=== PATIENT | female | born 1980 | race American Indian/Alaskan Native ===

== ENCOUNTER 2017-03-07 17:10 | Emergency (ER) | payer BC ==
[2017-03-07] MEDS ORDERED: TORADOL IM ONE (19:30)
[2017-03-07] MEDS ORDERED: ZESTRIL PO ONE (19:30)
--- NOTE | 2017-03-07 19:45 | Emergency Department Report ---
ED General Adult HPI - General Chief complaint: Shoulder Injury Stated complaint: LEFT SHOULDER PAIN Time Seen by Provider: 03/07/17 19:00 Source: patient Mode of arrival: Ambulatory Limitations: No Limitations - History of Present Illness Initial comments: 36-year-old female past medical history hypertension, diabetes presents with complaint of left-sided shoulder/neck pain since this morning. Patient denies any trauma to neck denies any falls denies any head trauma denies any neck or shoulder strain. Patient states she had sensation of muscle spasm in her left side neck which was worse when she turned her head to the left. Patient has had pain intermittently throughout the day. Took a Motrin this morning with minimal relief of her pain. On exam patient is awake alert and oriented 3 not in acute distress. Fully lucid and cooperative. Denies cough fever chills palpitations diaphoresis. Denies any headache dizziness or blurry vision. Denies any facial upper or lower extremity paresthesias. States that pain from neck somewhat radiates to her left upper chest. Pain currently 5 out of 10. -: This morning Location: neck (left side neck) Severity scale (0 -10): 5 Quality: aching Consistency: intermittent Worsens with: movement (worsens with left-sided head rotation) Associated Symptoms: denies other symptoms - Related Data Home Medications Medication Instructions Recorded Confirmed Last Taken Vit-Fe Fumar-FA [ 1 each PO QDAY 11/11/13 11/11/13 11/10/13 Vitamin] Previous Rx's Medication Instructions Recorded Last Taken Type HYDROcodone/ACETAMINOPHEN [George 1 each PO Q6H #10 tablet 11/11/13 Unknown Rx 5/325 Tablet] Cyclobenzaprine [Flexeril] 10 mg PO TID PRN #10 tablet 03/07/17 Unknown Rx Naproxen 250 mg PO TID PRN #20 tablet 03/07/17 Unknown Rx Allergies Allergy/AdvReac Type Severity Reaction Status Date / Time No Known Allergies Allergy Unverified 11/03/13 12:46 ED Review of Systems ROS: Stated complaint: LEFT SHOULDER PAIN Other details as noted in HPI Constitutional: denies: chills, fever Eyes: denies: eye pain, eye discharge, vision change ENT: denies: ear pain, throat pain Respiratory: denies: cough, shortness of breath, wheezing Cardiovascular: denies: chest pain, palpitations Endocrine: no symptoms reported Gastrointestinal: denies: abdominal pain, nausea, diarrhea Genitourinary: denies: urgency, dysuria, discharge Musculoskeletal: as per HPI (left-sided neck pain since this morning). denies: back pain, joint swelling, arthralgia Skin: denies: rash, lesions Neurological: denies: headache, weakness, paresthesias Psychiatric: denies: anxiety, depression Hematological/Lymphatic: denies: easy bleeding, easy bruising ED Past Medical Hx - Past Medical History Previous Medical History?: Yes Hx Hypertension: Yes (borderline) Hx Diabetes: Yes (borderline) - Surgical History Past Surgical History?: No - Social History Smoking Status: Never Smoker Substance Use Type: Alcohol, Prescribed - Medications Home Medications: Home Medications Medication Instructions Recorded Confirmed Last Taken Type HYDROcodone/ACETAMINOPHEN [George 1 each PO Q6H #10 tablet 11/11/13 Unknown Rx 5/325 Tablet] Vit-Fe Fumar-FA [ 1 each PO QDAY 11/11/13 11/11/13 11/10/13 History Vitamin] Cyclobenzaprine [Flexeril] 10 mg PO TID PRN #10 tablet 03/07/17 Unknown Rx Naproxen 250 mg PO TID PRN #20 tablet 03/07/17 Unknown Rx ED Physical Exam - General Limitations: No Limitations General appearance: alert, in no apparent distress - Head Head exam: Present: atraumatic, normocephalic - Eye Eye exam: Present: normal appearance, PERRL, EOMI - ENT ENT exam: Present: mucous membranes moist - Neck Neck exam: Present: normal inspection, tenderness (some reproducible tenderness along left side trapezius muscle), full ROM (neck flexion and extension neck lateral rotation and lateral flexion fully intact bilaterally) - Expanded Neck Exam Expanded Neck exam: Present: other (there is no carotid bruit on exam on either the left or the right on auscultation) - Respiratory Respiratory exam: Present: normal lung sounds bilaterally. Absent: respiratory distress - Cardiovascular Cardiovascular Exam: Present: regular rate, normal rhythm. Absent: systolic murmur, diastolic murmur, rubs, gallop - GI/Abdominal GI/Abdominal exam: Present: soft, normal bowel sounds - Extremities Exam Extremities exam: Present: normal inspection - Back Exam Back exam: Present: normal inspection - Neurological Exam Neurological exam: Present: alert, oriented X3, CN II-XII intact, normal gait - Expanded Neurological Exam Expanded Patient oriented to: Present: person, place, time Cranial nerves: EOM's Intact: Normal, Facial Sensation: Normal Upper motor neuron: Mark Neglect: Normal Sensory exam: Upper Extremity Light Touch: Normal, Lower Extremity Light Touch: Normal Motor strength exam: RUE: 5, LUE: 5, RLE: 5, LLE: 5 Best Eye Response (Roff): (4) open spontaneously Best Motor Response (Severino): (6) obeys commands Best Verbal Response (Roff): (5) oriented Severino Total: 15 - Psychiatric Psychiatric exam: Present: normal affect, normal mood - Skin Skin exam: Present: warm, dry, intact, normal color. Absent: rash ED Course Vital Signs 03/07/17 03/07/17 03/07/17 17:20 19:52 20:33 Temperature 98.8 F Pulse Rate 85 87 Respiratory 16 18 Rate Blood Pressure 175/95 167/114 O2 Sat by Pulse 98 99 Oximetry ED Medical Decision Making - Lab Data Result diagrams: 03/07/17 19:33 03/07/17 19:33 - Medical Decision Making A/P: Musculoskeletal neck pain 1-patient's pain is reproducible with left lateral rotation of neck. Moderate relief with Toradol. Will provide the patient with trial of NSAIDs and muscle relaxants when necessary for relief. 2-case discussed with Dr. painter before discharge. HEART Score low 1 points Low Score (0-3 points). Risk of MACE of 0.9-1.7%. RIAZ 0 points 5% risk at 14 days of: all-cause mortality, new or recurrent [place], or severe recurrent ischemia requiring urgent revascularization. 3-I will refer patient to primary care and cardiology. I emphasized the importance of follow-up to the patient 4- vital signs stable for discharge. Critical care attestation.: If time is entered above; I have spent that time in minutes in the direct care of this critically ill patient, excluding procedure time. ED Disposition Clinical Impression: Neck pain on left side Disposition: DC-01 TO HOME OR SELFCARE Is pt being admited?: No Does the pt Need Aspirin: No Condition: Stable Instructions: Musculoskeletal Pain (ED), Spasmodic Torticollis (ED), Muscle Spasm (ED) Prescriptions: Cyclobenzaprine [Flexeril] 10 mg PO TID PRN #10 tablet PRN Reason: Muscle Spasm Naproxen 250 mg PO TID PRN #20 tablet PRN Reason: Pain Referrals: EMILY MCCLURE MD [Referring] - 3-5 Days ISATU VILLEGAS MD [Staff Physician] - 3-5 Days [facility] [Provider Group] - 3-5 Days [facility] [Provider Group] - 3-5 Days Time of Disposition: 21:28
[2017-03-07 19:49] LABS: Basophils % (Auto) 0.4 % (0.0-1.8); Hematocrit 40.2 % (30.3-42.9); Hemoglobin 13.3 gm/dl (10.1-14.3); Mean Corpuscular HGB Conc 33 % (30-34); Mean Corpuscular Hemoglobin 29 pg (28-32); Mean Corpuscular Volume 89 fl (79-97); Platelet Count 301 K/mm3 (140-440); Red Blood Count 4.54 M/mm3 (3.65-5.03); Red Cell Distribution Width 14.3 % (13.2-15.2); White Blood Count 6.6 K/mm3 (4.5-11.0)
[2017-03-07 20:04] LABS: Anion Gap 20 mmol/L; BUN/Creatinine Ratio 20; Blood Urea Nitrogen 10 mg/dL (7-17); Calcium 9.8 mg/dL (8.4-10.2); Carbon Dioxide 26 mmol/L (22-30); Chloride 96.8 mmol/L (98-107); Glucose 313 mg/dL (65-100); Potassium 4.2 mmol/L (3.6-5.0); Sodium 139 mmol/L (137-145)
--- NOTE | 2017-03-07 20:43 | XRay Report ---
FINAL REPORT EXAM: XR CHEST ROUTINE 2V HISTORY: chest pain TECHNIQUE: Two view chest PA and lateral PRIORS: None. FINDINGS: Cardiac and mediastinal contours are unremarkable. No focal pulmonary infiltrate is identified. No pleural fluid collection seen. Pulmonary vasculature is unremarkable. IMPRESSION: Negative two-view chest
[2017-03-07 20:44] VITALS: BP 167/114
[2017-03-07] MEDS ORDERED: FLEXERIL PO ONE (21:30)
== END 2017-03-07 21:45 | disposition home or self-care (01) ==
LOC: ED 17:10
DX: M54.2 Cervicalgia (principal)
CPT/HCPCS: 36415; 71020; 80048; 84484; 85025; 93005; 93010; 96372; 99284; J1885

== ENCOUNTER 2019-05-07 10:28 | Emergency (ER) | payer BC ==
[2019-05-07 10:47] VITALS: BP 192/110
[2019-05-07] MEDS ORDERED: LIDOCAINE 1%/EPINEPHRINE 1:100,000 VIAL (20 ML) INFILTRATI NR (12:00)
--- NOTE | 2019-05-07 12:29 | Emergency Department Report ---
Abscess Boil HPI - HPI Chief Complaint: Skin/Abscess/Foreign Body Stated Complaint: BOIL ON BACK Time Seen by Provider: 05/07/19 11:45 Duration: >1 Week Location: Back Severity: Moderate History: Yes Pain, Yes Purulent Drainage, No Fever, No Numbness, No Foreign Body, No Previous History, No Insect Bite Home Medications: Home Medications Medication Instructions Recorded Confirmed Last Taken Vit-Fe Fumar-FA [ 1 each PO QDAY 11/11/13 11/11/13 11/10/13 Vitamin] Previous Rx's Medication Instructions Recorded Last Taken Type HYDROcodone/ACETAMINOPHEN [[employer] 1 each PO Q6H #10 tablet 11/11/13 Unknown Rx 5/325 Tablet] Cyclobenzaprine [Flexeril] 10 mg PO TID PRN #10 tablet 03/07/17 Unknown Rx Naproxen 250 mg PO TID PRN #20 tablet 03/07/17 Unknown Rx Clindamycin [Clindamycin CAP] 300 mg PO Q8H #21 cap 05/07/19 Unknown Rx HYDROcodone/APAP 5-325 [[employer] 1 each PO Q6HR PRN #14 tablet 05/07/19 Unknown Rx 5/325] predniSONE [Deltasone] 20 mg PO QDAY #5 tab 05/07/19 Unknown Rx Allergies/Adverse Reactions: Allergies Allergy/AdvReac Type Severity Reaction Status Date / Time No Known Allergies Allergy Unverified 11/03/13 12:46 ED Review of Systems ROS: Stated complaint: BOIL ON BACK Other details as noted in HPI Comment: All other systems reviewed and negative ED Past Medical Hx - Past Medical History Previous Medical History?: Yes Hx Hypertension: Yes (borderline) Hx Diabetes: Yes (borderline) - Surgical History Past Surgical History?: No - Social History Smoking Status: Never Smoker Substance Use Type: Alcohol, Prescribed - Medications Home Medications: Home Medications Medication Instructions Recorded Confirmed Last Taken Type HYDROcodone/ACETAMINOPHEN [[employer] 1 each PO Q6H #10 tablet 11/11/13 Unknown Rx 5/325 Tablet] Vit-Fe Fumar-FA [ 1 each PO QDAY 11/11/13 11/11/13 11/10/13 History Vitamin] Cyclobenzaprine [Flexeril] 10 mg PO TID PRN #10 tablet 03/07/17 Unknown Rx Naproxen 250 mg PO TID PRN #20 tablet 03/07/17 Unknown Rx Clindamycin [Clindamycin CAP] 300 mg PO Q8H #21 cap 05/07/19 Unknown Rx HYDROcodone/APAP 5-325 [[employer] 1 each PO Q6HR PRN #14 tablet 05/07/19 Unknown Rx 5/325] predniSONE [Deltasone] 20 mg PO QDAY #5 tab 05/07/19 Unknown Rx ED Abscess Boil Physical Exam - Exam General: Vital signs noted. No distress. Alert and acting appropriately. Size: 4 cm Exam: Yes Tenderness, Yes Fluctuance, Yes Surrounding Cellulites/Erythema, Yes Normal Neurologic Exam, Yes Normal Circulation, No Lymphangitis, No Crepitation, No Heart Murmur I & D Note - I & D Note I & D Note: The area was prepped and cleaned with Betadine. 2 mL of lidocaine with epi were used to anesthetize the area. Patient did achieve good anesth esia. A 1 cm cut was made with 11 blade. It is a large amount of bloody purulent fluid was drained. They will break up loculations with a hemostat. The area was washed out with normal saline. Quarter-inch packing was inserted. ED Course Vital Signs 05/07/19 10:46 Temperature 98.3 F Pulse Rate 101 H Respiratory 16 Rate Blood Pressure 192/110 [Right] O2 Sat by Pulse 97 Oximetry Critical care attestation.: If time is entered above; I have spent that time in minutes in the direct care of this critically ill patient, excluding procedure time. ED Medical Decision Making - Medical Decision Making Patient had a large abscess on her back. This was drained here in the emergency department. Patient started on antibiotics and pain management. Patient followed with wound care. ED Disposition Clinical Impression: Abscess Disposition: DC-01 TO HOME OR SELFCARE Is pt being admited?: No Does the pt Need Aspirin: No Condition: Stable Instructions: Abscess (ED), Abscess Incision and Drainage (ED) Referrals: [facility] [Outside] - 3-5 Days Time of Disposition: 12:29
== END 2019-05-07 12:36 | disposition home or self-care (01) ==
LOC: ED 10:28
DX: L02.212 Cutaneous abscess of back [any part, except buttock and flank] (principal)
CPT/HCPCS: 99282

== ENCOUNTER 2019-05-09 13:17 | Outpatient (CLI) | payer BC ==
[2019-05-09] MEDS ORDERED: LIDOCAINE (4%) 40 MG/ML TOPICAL SOLN 50 ML BOTTLE TP ONE (13:24)
[2019-05-09] MEDS ORDERED: LIDOCAINE 1%/EPINEPHRINE 1:100,000 VIAL (20 ML) INFILTRATI ONE (14:55)
== END 2019-05-09 13:18 | disposition home or self-care (01) ==
LOC: WOUND 13:17
PROVIDERS: ATTEND Surgery
DX: L02.212 Cutaneous abscess of back [any part, except buttock and flank] (principal); E10.9 Type 1 diabetes mellitus without complications; I10 Essential (primary) hypertension
CPT/HCPCS: 11042; G0463; 99214

== ENCOUNTER 2019-05-13 13:51 | Outpatient (CLI) | payer BC | END 2019-05-13 13:52 | disposition home or self-care (01) | LOC: WOUND 13:51 | PROVIDERS: ATTEND Surgery | DX: L02.212 Cutaneous abscess of back [any part, except buttock and flank] (principal); E10.9 Type 1 diabetes mellitus without complications; I10 Essential (primary) hypertension | CPT/HCPCS: 99213; G0463 ==

== ENCOUNTER 2019-05-26 14:34 | Outpatient (CLI) | payer BC | END 2019-05-26 14:35 | disposition home or self-care (01) | LOC: WOUND 14:34 | PROVIDERS: ATTEND Surgery | DX: T81.89XD Other complications of procedures, not elsewhere classified, subsequent encounter (principal); I10 Essential (primary) hypertension; Y83.8 Other surgical procedures as the cause of abnormal reaction of the patient, or of later complication, without mention of misadventure at the time of the procedure | CPT/HCPCS: 99213; G0463 ==

== ENCOUNTER 2019-05-30 10:22 | Outpatient (CLI) | payer BC ==
[2019-05-30] MEDS ORDERED: LIDOCAINE (4%) 40 MG/ML TOPICAL SOLN 50 ML BOTTLE TP ONE (10:26)
== END 2019-05-30 10:23 | disposition home or self-care (01) ==
LOC: WOUND 10:22
PROVIDERS: ATTEND Surgery
DX: L02.212 Cutaneous abscess of back [any part, except buttock and flank] (principal); I10 Essential (primary) hypertension; E10.9 Type 1 diabetes mellitus without complications

== ENCOUNTER 2019-06-03 07:54 | Outpatient (CLI) | payer BC | END 2019-06-03 07:55 | disposition home or self-care (01) | LOC: WOUND 07:54 | PROVIDERS: ATTEND Surgery | DX: T81.89XD Other complications of procedures, not elsewhere classified, subsequent encounter (principal); I10 Essential (primary) hypertension; E10.9 Type 1 diabetes mellitus without complications; Y83.8 Other surgical procedures as the cause of abnormal reaction of the patient, or of later complication, without mention of misadventure at the time of the procedure | CPT/HCPCS: 99212; G0463 ==

== ENCOUNTER 2019-06-06 13:07 | Outpatient (CLI) | payer BC ==
[2019-06-06] MEDS ORDERED: LIDOCAINE (4%) 40 MG/ML TOPICAL SOLN 50 ML BOTTLE TP ONE (13:13)
== END 2019-06-06 13:08 | disposition home or self-care (01) ==
LOC: WOUND 13:07
PROVIDERS: ATTEND Surgery
DX: L02.212 Cutaneous abscess of back [any part, except buttock and flank] (principal); I10 Essential (primary) hypertension; E10.9 Type 1 diabetes mellitus without complications

== ENCOUNTER 2019-06-10 13:20 | Outpatient (CLI) | payer BC | END 2019-06-10 13:21 | disposition home or self-care (01) | LOC: WOUND 13:20 | PROVIDERS: ATTEND Surgery | DX: T81.89XD Other complications of procedures, not elsewhere classified, subsequent encounter (principal); E10.9 Type 1 diabetes mellitus without complications; I10 Essential (primary) hypertension; Y83.8 Other surgical procedures as the cause of abnormal reaction of the patient, or of later complication, without mention of misadventure at the time of the procedure | CPT/HCPCS: 99213; G0463 ==

== ENCOUNTER 2019-06-13 11:07 | Outpatient (CLI) | payer BC ==
[~2019-06-13 11:07] MED LIST: LIDOCAINE (4%) 40 MG/ML TOPICAL SOLN 50 ML BOTTLE TP ONE
== END 2019-06-13 11:08 | disposition home or self-care (01) ==
LOC: WOUND 11:07
PROVIDERS: ATTEND Surgery
DX: L02.212 Cutaneous abscess of back [any part, except buttock and flank] (principal); E10.9 Type 1 diabetes mellitus without complications; I10 Essential (primary) hypertension

== ENCOUNTER 2019-06-17 08:27 | Outpatient (CLI) | payer BC | END 2019-06-17 08:28 | disposition home or self-care (01) | LOC: WOUND 08:27 | PROVIDERS: ATTEND Surgery | DX: S21.201A Unspecified open wound of right back wall of thorax without penetration into thoracic cavity, initial encounter (principal); E10.9 Type 1 diabetes mellitus without complications; I10 Essential (primary) hypertension; X58.XXXA Exposure to other specified factors, initial encounter; Y93.89 Activity, other specified; Y92.89 Other specified places as the place of occurrence of the external cause; Y99.8 Other external cause status | CPT/HCPCS: 99213; G0463 ==

== ENCOUNTER 2019-06-20 09:00 | Outpatient (CLI) | payer BC ==
[2019-06-20] MEDS ORDERED: LIDOCAINE (4%) 40 MG/ML TOPICAL SOLN 50 ML BOTTLE TP ONE (09:30)
== END 2019-06-20 09:01 | disposition home or self-care (01) ==
LOC: WOUND 09:00
PROVIDERS: ATTEND Surgery
DX: L02.212 Cutaneous abscess of back [any part, except buttock and flank] (principal); E11.628 Type 2 diabetes mellitus with other skin complications; I10 Essential (primary) hypertension

== ENCOUNTER 2019-06-24 14:01 | Outpatient (CLI) | payer BC | END 2019-06-24 14:02 | disposition home or self-care (01) | LOC: WOUND 14:01 | PROVIDERS: ATTEND Surgery | DX: L02.212 Cutaneous abscess of back [any part, except buttock and flank] (principal); E11.628 Type 2 diabetes mellitus with other skin complications; I10 Essential (primary) hypertension | CPT/HCPCS: 99213; G0463 ==

== ENCOUNTER 2019-06-27 09:00 | Outpatient (CLI) | payer BC ==
[2019-06-27] MEDS ORDERED: LIDOCAINE (4%) 40 MG/ML TOPICAL SOLN 50 ML BOTTLE TP ONE (09:30)
== END 2019-06-27 09:01 | disposition home or self-care (01) ==
LOC: WOUND 09:00
PROVIDERS: ATTEND Surgery
DX: L02.212 Cutaneous abscess of back [any part, except buttock and flank] (principal); E11.628 Type 2 diabetes mellitus with other skin complications; I10 Essential (primary) hypertension

== ENCOUNTER 2019-07-01 08:46 | Outpatient (CLI) | payer BC | END 2019-07-01 08:47 | disposition home or self-care (01) | LOC: WOUND 08:46 | PROVIDERS: ATTEND Surgery | DX: L02.212 Cutaneous abscess of back [any part, except buttock and flank] (principal); E11.628 Type 2 diabetes mellitus with other skin complications; I10 Essential (primary) hypertension | CPT/HCPCS: 99212; G0463 ==

== ENCOUNTER 2019-07-04 11:30 | Outpatient (CLI) | payer BC | END 2019-07-04 11:31 | disposition home or self-care (01) | LOC: WOUND 11:30 | PROVIDERS: ATTEND Surgery | DX: L02.212 Cutaneous abscess of back [any part, except buttock and flank] (principal); E11.628 Type 2 diabetes mellitus with other skin complications; I10 Essential (primary) hypertension | CPT/HCPCS: 99212; G0463 ==

== ENCOUNTER 2019-07-18 09:05 | Outpatient (CLI) | payer BC | END 2019-07-18 09:06 | disposition home or self-care (01) | LOC: WOUND 09:05 | PROVIDERS: ATTEND Surgery | DX: T81.89XD Other complications of procedures, not elsewhere classified, subsequent encounter (principal); E11.628 Type 2 diabetes mellitus with other skin complications; I10 Essential (primary) hypertension; Y83.8 Other surgical procedures as the cause of abnormal reaction of the patient, or of later complication, without mention of misadventure at the time of the procedure | CPT/HCPCS: 99213; G0463 ==

== ENCOUNTER 2021-08-05 07:31 | Outpatient (CLI) | payer BC ==
[2021-08-05 07:42] LABS: Basophils % (Auto) 0.5 % (0.0-1.8); Eosinophils % (Auto) 0.9 % (0.0-4.3); Hematocrit 41.8 % (30.3-42.9); Hemoglobin 14.2 gm/dl (10.1-14.3); Lymphocytes % (Auto) 36.4 % (13.4-35.0); Mean Corpuscular HGB Conc 34 % (30-34); Mean Corpuscular Volume 92 fl (79-97); Monocytes # (Auto) 0.2 K/mm3 (0.0-0.8); Monocytes % (Auto) 4.4 % (0.0-7.3); Platelet Count 261 K/mm3 (140-440); Red Blood Count 4.55 M/mm3 (3.65-5.03)
[2021-08-05 07:51] LABS: Bilirubin,Urine NEG (Negative); Blood,Urine NEG (Negative); Color,Urine Straw (Yellow); Creatinine,Urine 38.2 mg/dL (0.1-20.0); Microalbumin/Creatinine Ratio 458.1 ug/mg; Urobilinogen,Urine < 2.0 mg/dL (<2.0)
[2021-08-05 08:04] LABS: Alanine Aminotransferase 9 units/L (7-56); Albumin 4.4 g/dL (3.9-5); Blood Urea Nitrogen 11 mg/dL (7-17); Calcium 10.3 mg/dL (8.4-10.2); Chol/HDL Ratio 1.92 %; HDL Cholesterol 88 mg/dL (40-59); Hemolysis Index 0; LDL Cholesterol,Direct 51 mg/dL (50-130)
[2021-08-05 08:05] LABS: BUN/Creatinine Ratio 18
[2021-08-09 13:32] LABS: Vitamin D, 25-OH, D2 <4 ng/mL
== END 2021-08-05 07:32 | disposition home or self-care (01) ==
LOC: LAB 07:31
PROVIDERS: ATTEND Internal Medicine
DX: E11.65 Type 2 diabetes mellitus with hyperglycemia (principal); E55.9 Vitamin D deficiency, unspecified; R53.83 Other fatigue; E78.5 Hyperlipidemia, unspecified
CPT/HCPCS: 36415; 80053; 80061; 81001; 82043; 82306; 83036; 84443; 85025